=== PATIENT | male | born 1985 | race Caucasian/White ===

== ENCOUNTER 2016-09-09 19:02 | Emergency (ER) | payer OTHER ==
[2016-09-09] MEDS ORDERED: Albuterol-Ipratrop 3 mg / 0.5 (3 ml) UD ONE ×2 (19:07→19:49)
[2016-09-09] MEDS ORDERED: Albuterol-Ipratrop 3 mg / 0.5 (3 ml) UD INH STA (19:43)
[2016-09-09 19:49] VITALS: RESP 18
--- NOTE | 2016-09-09 20:31 | C.PDOC ---
History Of Present Illness 30 year old male presents to the ED with complaints of "not feeling well" and coughing for the last week with left upper back back since last night. Patient states he has a history of asthma and is a smoker. He has run out of nebulizer and pump medication. Patient denies nausea, vomiting, or any other complaints at this time. Time Seen by Provider: 09/09/16 19:49 Chief Complaint (Nursing): Shortness Of Breath History Per: Patient History/Exam Limitations: no limitations Onset/Duration Of Symptoms: Days Current Symptoms Are (Timing): Still Present Associated Symptoms: denies: Fever, Chills, Sweating, Chest Pain Recent travel outside of the [place]: No Past Medical History Reviewed: Historical Data, Nursing Documentation, Vital Signs Vital Signs: Last Vital Signs Temp 98 F 09/09/16 21:53 Pulse 77 09/09/16 21:53 Resp 18 09/09/16 21:53 BP 120/75 09/09/16 21:53 Pulse Ox 99 09/09/16 21:53 - Medical History PMH: Asthma Surgical History: Appendectomy Family History: States: No Known Family Hx - Social History Hx Tobacco Use: Yes (3 pack daily) Hx Alcohol Use: No Hx Substance Use: No - Immunization History Hx Tetanus Toxoid Vaccination: No Hx Influenza Vaccination: Yes Hx Pneumococcal Vaccination: No Review Of Systems Constitutional: Negative for: Fever, Chills, Sweats Cardiovascular: Negative for: Chest Pain, Palpitations Respiratory: Positive for: Cough. Negative for: Shortness of Breath Gastrointestinal: Negative for: Nausea, Vomiting, Abdominal Pain, Diarrhea Musculoskeletal: Positive for: Back Pain Physical Exam - Physical Exam Appears: Non-toxic, No Acute Distress Skin: Warm, Dry Head: Atraumatic Oral Mucosa: Moist Neck: Supple Chest: Symmetrical, No Deformity Cardiovascular: Rhythm Regular Respiratory: No Rales, No Rhonchi, No Stridor, Wheezing (severe wheezing bilaterally) Gastrointestinal/Abdominal: Soft, No Tenderness, No Distention, No Guarding, No Rebound Extremity: Normal ROM, No Tenderness Neurological/Psych: Oriented x3 ED Course And Treatment O2 Sat by Pulse Oximetry: 98 - Radiology CXR: Interpreted by Me, Viewed By Me CXR Interpretation: Yes: No Acute Disease. No: Infiltrates Progress Note: On re-exam patient feels better, no difficulty breathing, speaks in full sentances. Patient was d/c home with PMD/Clinic follow up. Medical Decision Making Medical Decision Making: Patient was given nebulizer treatment, predniSONE, albuterol, and a chest X-ray was performed. Disposition Counseled Patient/Family Regarding: Smoking Cessation - Disposition Disposition: HOME/ ROUTINE Disposition Time: 21:35 Condition: GOOD Additional Instructions: Follow up with PMD within 1-2 days. Return to ED if feel worse. Prescriptions: Albuterol 0.083% [Albuterol Sulfate 3 Ml] 3 ml IH .Q4-6H #100 vial predniSONE [predniSONE Tab] 2 tab PO DAILY #8 tab Albuterol HFA [Ventolin HFA 90 mcg/actuation (8 g)] 1 puff IH .Q4-6H #1 inhaler Azithromycin [Zithromax] 250 mg PO DAILY #6 tab Instructions: Asthma (ED), How to Stop Smoking (ED) Forms: Work Excuse Print Language: OCCITAN - Clinical Impression Clinical Impression: Exacerbation of asthma, Smoking addiction - Scribe Statement The provider has reviewed the documentation as recorded by the Scribhany Acosta All medical record entries made by the Lashonibhany were at my direction and personally dictated by me. I have reviewed the chart and agree that the record accurately reflects my personal performance of the history, physical exam, medical decision making, and the department course for this patient. I have also personally directed, reviewed, and agree with the discharge instructions and disposition.
[2016-09-09] MEDS ORDERED: Albuterol-Ipratrop 3 mg / 0.5 (3 ml) UD IH SCH (20:45)
[2016-09-09 21:54] VITALS: BP 120/75; PULSE 77; TEMP 98
[2016-09-10 02:04] VITALS: O2SAT 98
--- NOTE | 2016-09-10 08:14 | RAD ---
HISTORY: cough/wheezing COMPARISON: No prior. TECHNIQUE: Chest PA and lateral FINDINGS: LUNGS: No active pulmonary disease. PLEURA: No significant pleural effusion identified. No pneumothorax apparent. CARDIOVASCULAR: Normal. OSSEOUS STRUCTURES: No significant abnormalities. VISUALIZED UPPER ABDOMEN: Normal. OTHER FINDINGS: None. IMPRESSION: No active disease.
== END 2016-09-09 21:54 | disposition home or self-care (01) ==
LOC: C.ER 19:02
DX: J45.901 Unspecified asthma with (acute) exacerbation (principal); F17.210 Nicotine dependence, cigarettes, uncomplicated

== ENCOUNTER 2016-10-05 17:48 | Emergency (ER) | payer OTHER ==
[2016-10-05] MEDS ORDERED: Sodium Chloride 0.9% 1,000 ML IV ONE (20:18)
[2016-10-05] MEDS ORDERED: Albuterol-Ipratrop 3 mg / 0.5 (3 ml) UD IH STA (20:20)
[2016-10-05 20:45] LABS: BASO # 0.1 K/uL (0.0-0.2); BASO % 0.4 % (0.0-2.0); EOS # 0.1 K/uL (0.0-0.7); EOS % 0.4 % (0.0-4.0); HEMATOCRIT 45.5 % (35.0-51.0); LYMPH # 1.3 K/uL (1.0-4.3); LYMPH % 11.2 % (20.0-40.0); MEAN CORPUSCULAR HEMOGLOBIN 31.1 pg (27.0-31.0); MEAN CORPUSCULAR HGB CONC 33.1 g/dL (33.0-37.0); MEAN PLATELET VOLUME 8.2 fL (7.2-11.7); MONO # 0.7 K/uL (0.0-0.8); MONO % 5.8 % (0.0-10.0); RED CELL DISTRIBUTION WIDTH 13.6 % (11.5-14.5); WHITE BLOOD COUNT 11.3 K/uL (4.8-10.8)
[2016-10-05 20:46] LABS: RBC URINE < 1 /hpf (0-3); URINE BILIRUBIN NEGATIVE (NEGATIVE); URINE BLOOD NEGATIVE (NEGATIVE); URINE COLOR Yellow (YELLOW); URINE GLUCOSE (UA) NORMAL (Normal); URINE KETONE NEGATIVE (NEGATIVE); URINE LEUKOCYTE ESTERASE NEG Leu/uL (Negative); URINE PROTEIN NEGATIVE (NEGATIVE); URINE UROBILINOGEN NORMAL mg/dL (0.2-1.0); WBC URINE < 1 /hpf (0-5)
[2016-10-05] MEDS ORDERED: Albuterol-Ipratrop 3 mg / 0.5 (3 ml) UD ONE (20:58)
[2016-10-05] MEDS ORDERED: Sodium Chloride 0.9% 1,000 ML ONE (20:58)
[2016-10-05 21:01] LABS: CHLORIDE 101 mmol/L (98-107); SODIUM 136 mmol/L (132-148)
[2016-10-05 21:03] LABS: CARBON DIOXIDE 24 mmol/L (22-30); GFR AFRICAN-AMERICAN > 60
[2016-10-05 21:04] LABS: ALB/GLOB RATIO 1.2 (1.0-2.1); ALKALINE PHOSPHATASE 51 U/L (38-126); ALT/SGPT 23 U/L (21-72); AST/SGOT 22 U/L (17-59); BLOOD UREA NITROGEN 16 mg/dL (9-20); CALCIUM 9.5 mg/dl (8.6-10.4); GLUCOSE,RANDOM 121 mg/dL (75-110); TOTAL PROTEIN 7.7 g/dL (6.3-8.3)
[2016-10-05 21:05] LABS: ALCOHOL SERUM < 10 mg/dl (0-10)
--- NOTE | 2016-10-05 21:42 | C.PDOC ---
History Of Present Illness Pt is here requesting detox from Heroin and is already having withdrawal symptoms. He is also c/o SOB. Time Seen by Provider: 10/05/16 20:02 Chief Complaint (Nursing): Substance Abuse History Per: Patient, Family, Reference Services Head History/Exam Limitations: language barrier Onset/Duration Of Symptoms: Days (1) Current Symptoms Are (Timing): Still Present Suicide/Self Injury Attempted (Context): None Modifying Factor(s): Narcotics, Crack Severity: Moderate Associated Symptoms: denies: Suicidal Thoughts, Suicidal Plan Additional History Per: Prior Records Past Medical History Reviewed: Historical Data, Nursing Documentation, Vital Signs Vital Signs: Last Vital Signs Temp 98.4 F 10/05/16 18:33 Pulse 97 H 10/05/16 18:33 Resp 18 10/05/16 18:33 BP 130/79 10/05/16 18:33 Pulse Ox 99 10/05/16 18:33 - Medical History PMH: Asthma Surgical History: Appendectomy Family History: States: Unknown Family Hx - Social History Hx Tobacco Use: Yes (3 pack daily) Hx Alcohol Use: No Hx Substance Use: Yes (crack and heroin) - Immunization History Hx Tetanus Toxoid Vaccination: No Hx Influenza Vaccination: Yes Hx Pneumococcal Vaccination: No Review Of Systems Except As Marked, All Systems Reviewed And Found Negative. Constitutional: Negative for: Fever Cardiovascular: Negative for: Chest Pain Respiratory: Positive for: Shortness of Breath. Negative for: Hemoptysis Gastrointestinal: Positive for: Nausea, Abdominal Pain, Diarrhea Genitourinary: Negative for: Dysuria Musculoskeletal: Negative for: Neck Pain Skin: Negative for: Rash Neurological: Negative for: Weakness, Numbness, Seizures, Altered Mental Status Psych: Negative for: Psychosis Physical Exam - Physical Exam Appears: Non-toxic, No Acute Distress Skin: Normal Color, Warm, Dry, No Rash Head: Atraumatic, Normacephalic Eye(s): bilateral: PERRL, EOMI Oral Mucosa: Moist Neck: Normal ROM, Supple Chest: Symmetrical Cardiovascular: Rhythm Regular Respiratory: Normal Breath Sounds, No Accessory Muscle Use Gastrointestinal/Abdominal: Soft, No Distention, No Guarding, No Rebound Back: No CVA Tenderness Extremity: Normal ROM, No Pedal Edema, No Calf Tenderness Neurological/Psych: Oriented x3, Normal Motor, Normal Sensation ED Course And Treatment - Laboratory Results Result Diagrams: 10/05/16 20:24 10/05/16 20:24 Lab Interpretation: No Acute Changes O2 Sat by Pulse Oximetry: 99 Pulse Ox Interpretation: Normal - Radiology CXR: Interpreted by Me, Viewed By Me CXR Interpretation: Yes: No Acute Disease Progress Note: There are no available detox beds. Pt given a list of detox programs in the area. Pt feels much better and wants to go home. Lungs clear. Reassessment Condition: Improved Progress - Interventions Interventions:: Observation, Intravenous fluid - Medications Administered Inhaled nebulized: Anticholinergic, Beta-2 agonist Intravenous: Antiemetic, H-2 kerry - Data Reviewed Data Reviewed: Lab, Diagnostic imaging, Old records - Patient Status Patient status: Mostly improved - Continuity of Care Discussed patient case with:: Patient, Family-HIPPA compliant, ED Nurse - Patient Plan Patient Plan: Discharge, F/U with PCP Disposition Counseled Patient/Family Regarding: Studies Performed, Diagnosis, Need For Followup, Rx Given, Smoking Cessation - Disposition Disposition: HOME/ ROUTINE Disposition Time: 21:44 Condition: IMPROVED Additional Instructions: Follow up with you doctor and with a detox program. Return to the ER if you develop worsening of symptoms or if you have any other concerns. Instructions: Polysubstance Abuse (ED) - Clinical Impression Clinical Impression: Polysubstance abuse, Asthma
[2016-10-05 22:00] VITALS: BP 128/60; PULSE 96; RESP 20; TEMP 98.2; O2SAT 100
--- NOTE | 2016-10-06 13:58 | RAD ---
HISTORY: SOB COMPARISON: 09/09/2016 TECHNIQUE: Chest PA and lateral FINDINGS: LUNGS: No active pulmonary disease. PLEURA: No significant pleural effusion identified. No pneumothorax apparent. CARDIOVASCULAR: Normal. OSSEOUS STRUCTURES: No significant abnormalities. VISUALIZED UPPER ABDOMEN: Normal. OTHER FINDINGS: None. IMPRESSION: No active disease.
== END 2016-10-05 22:00 | disposition home or self-care (01) ==
LOC: C.ER 17:48
DX: J45.909 Unspecified asthma, uncomplicated (principal); F19.10 Other psychoactive substance abuse, uncomplicated; F17.210 Nicotine dependence, cigarettes, uncomplicated
CPT/HCPCS: 71020; 80053; 80320; 80324; 80345; 80346; 80349; 80353; 80358; 80361; 81001; 83690; 83992; 85025; 94640; 96361; 96374; 96375; 99283; J2405; J7040

== ENCOUNTER 2016-12-16 12:19 | Emergency (ER) | payer SELFPAY ==
[2016-12-16] MEDS ORDERED: Bacitracin 500 Units/gm Oint Foilpak UD TOP ONE (12:28)
[2016-12-16] MEDS ORDERED: Naproxen 550 mg Tab PO STA (12:30)
--- NOTE | 2016-12-16 12:31 | C.PDOC ---
History Of Present Illness 31 yo male, presents for evalulation of a right thumb abrasion, he sustained, when his finger hit an electic fan. no other injuyr or complaints. treated at home with antibiotic ointment. pt states injury happened yesterday am Time Seen by Provider: 12/16/16 12:22 Chief Complaint (Nursing): Abnormal Skin Integrity Past Medical History Reviewed: Historical Data, Nursing Documentation, Vital Signs Vital Signs: Last Vital Signs Temp 98.5 F 12/16/16 12:27 Pulse 92 H 12/16/16 12:27 Resp 17 12/16/16 12:56 BP 135/78 12/16/16 12:56 Pulse Ox 98 12/16/16 12:56 - Medical History PMH: Asthma Denies: Chronic Kidney Disease Surgical History: Appendectomy Family History: States: Unknown Family Hx - Social History Hx Tobacco Use: Yes (3 pack daily) Hx Alcohol Use: No Hx Substance Use: Yes (crack and heroin) - Immunization History Hx Tetanus Toxoid Vaccination: No Hx Influenza Vaccination: Yes Hx Pneumococcal Vaccination: No Review Of Systems Musculoskeletal: Positive for: Other (abrasion) Physical Exam - Physical Exam Appears: Well, No Acute Distress Skin: Normal Color, Warm, Dry, Other ((+)small abrasion 0.5 cm to proximal right 1st digit. ) Eye(s): bilateral: Normal Inspection, PERRL, EOMI Nose: Normal Throat: Normal Neck: Normal Cardiovascular: Rhythm Regular Respiratory: Normal Breath Sounds Gastrointestinal/Abdominal: Normal Exam Back: Normal Inspection Extremity: Normal ROM Medical Decision Making Medical Decision Making: xr neg as read by me. wound does not appear actively infected, will give antibiotic prophalaxis. Disposition - Disposition Referrals: [facility] [Outside] [facility] [Outside] [facility] [Outside] Clinic,Med Surg [Primary Care Provider] - Char Wilde MD [Staff Provider] - Disposition: HOME/ ROUTINE Disposition Time: 01:00 Condition: STABLE Additional Instructions: please follow up with your doctor/specialist. return to er with worsening symptoms or concerns. Prescriptions: Cephalexin [cephalexin] 500 mg PO BID #14 cap Instructions: Finger Sprain (ED), Abrasion (ED) Forms: [employer] (Belgian) - Clinical Impression Clinical Impression: Skin abrasion, Thumb injury
[2016-12-16 12:41] VITALS: PULSE 92; RESP 17; TEMP 98.5; BMI 22.1
[2016-12-16] MEDS ORDERED: Naproxen 550 mg Tab PO ONE (12:43)
[2016-12-16] MEDS ORDERED: Bacitracin 500 Units/gm Oint Foilpak UD ONE (12:43)
[2016-12-16 12:58] VITALS: BP 135/78; O2SAT 98
--- NOTE | 2016-12-16 16:35 | RAD ---
PROCEDURE: Right Hand Radiographs. HISTORY: trauma COMPARISON: None. FINDINGS: BONES: Normal. No fracture. JOINTS: Normal. No osteoarthritic changes. SOFT TISSUES: Normal. OTHER FINDINGS: None. IMPRESSION: Normal right hand radiographs.
== END 2016-12-16 13:01 | disposition home or self-care (01) ==
LOC: C.ER 12:19 → SUPCPDRO 12:19 → C.ER 13:01
DX: S60.311A Abrasion of right thumb, initial encounter (principal); W22.8XXA Striking against or struck by other objects, initial encounter